=== PATIENT | male | born 1970 | race Caucasian/White ===

== ENCOUNTER 2025-01-05 08:50 | Outpatient (OUT) | payer OTHER, SELFPAY ==
--- NOTE | 2025-01-05 08:52 | ECG_ITS ---
[facility] Test Date: 2025-01-05 Pat Name: RAINA GALAN Department: Room: - Gender: Male Baller Tender: : 1970 Requested By: PREETHI MARIE Order Number: [id number] Reading MD: KLEVER ARCHER M.D. Measurements Intervals [place] Rate: 64 P: 28 WI: 172 QRS: -26 QRSD: 108 T: 158 QT: 403 QTc: 417 Interpretive Statements SINUS RHYTHM BORDERLINE LEFT AXIS DEVIATION [QRS AXIS < -20] POSSIBLE RIGHT VENTRICULAR CONDUCTION DELAY [RSR (QR) IN V1/V2] NONSPECIFIC T-WAVE ABNORMALITY Abnormal ECG Compared to ECG 07/20/2019 03:26:42 No significant changes Electronically Signed On 01-05-2025 21:04:00 EDT by KLEVER ARCHER M.D.
--- OUTSIDE RECORDS SUMMARY | 2025-01-05 08:56 | XMS_ITS | Clinical Summary ---
Author Organization [facility] Healthcare Address [address] [place] [address] Care Team Providers Care Land Economist Name Role Phone Unallocated, Noms Provider Primary Care Provi berny Allergies No known active allergies Medications carvedilol (Coreg) 12.5 MG tablet Take 12.5 mg by mouth in the morning and 12.5 mg before bedtime. 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 10 mL 1 Active Social History Tobacco Use Types Packs/Day Years Used Date Smoking Tobacco: Every Day Cigarettes Tobacco Cessation:Ready to Q uit: Not Asked; Counseling Given: Not Answered Sex and Gender Information Value Date Recorded Sex Assigned at Not on file Legal Sex Male 9:35 AM EDT Gender Identity Not on file Sexual Orientation Not on file Plan of Treatment Health Maintenance Due Date Last Done Comments CT Colonography 1969 Colonoscopy 1969 Colorectal Cancer Screening 1969 FIT-DNA 1969 FIT 1969 FOBT 1970 Sigmoidoscopy 1969 Influenza Vaccine (Season Ended) 2025 Insurance [employer] Care Teams Land Economist Relationship Specialty Start Date End Date Unallocated, Noms Anand, [address] [place] [address] PCP - General Family Medicine 02/19/24
--- OUTSIDE RECORDS SUMMARY | 2025-01-05 08:56 | XMS_ITS | Encounter Summary ---
Author Organization [facility] Address [address] [place] [address] Phone Care Team Providers Care Chief Communications Officer Name Role Phone Generic Provider, No Assigned Pcp MD Primary Car e Provider Unavailable Reason for Visit * Reason Onset Date Comments Cardiac Clearance 12/28/2024 Encounter Details Date Type Department Care Team (Late st Contact Info) Description 12/28/2024 Telephone [facility] [address] [address] Tasha Smith RN Cardiac Clearance Social History Tobacco Use Types Packs/Day Years Used Date Smoking Tobacco: Every Day Cigarettes Smokeless Tobacco: Never Alcohol Use Standard Drinks/Week Comments Not Currently 0 (1 standard drink = 0.6 oz pur e alcohol) Sex and Gender Information Value Date Recorded Sex Assigned at Not on file Legal Sex Male 2:33 PM EST Gender Identity Not on file Sexual Orientation Not on file documented as of this encounter Miscellaneous Notes * Telephone Encounter - Angelica Weinberg LPN - 12/29/2024 1:55 PM EDT Aspirin hold given by Dr. Nelson Casillas DO for 1 week and cardiac clearance for hydrocelectomy 01/20/2025. Faxed to Dr. Swan. * Telephone Encounter - Tasha Smith RN - 12/28/2024 9:[address] Swan office phones requesting cardiac clearance and permission to hold aspirin 1 week prior to[facility]celectomy at [facility] 01/20/25 under general anesthesia documented in this encounter Plan of Treatment Upcoming Encounters Date Type Department Care Team (Late st Contact Info) Description 10/06/2025 9:10 AM EDT Office Visit [facility] [address] [facility] [address] [place] [phone] Nelson Casillas, [address] [facility] [address] [place] [address] documented as of this encounter Visit Diagnoses Not on filedocumented in this encounter Care Teams Chief Communications Officer Relationship Specialty Start Date End Date Generic Provider, No Assigned Pcp, [place] [address] PCP - General Fish Warden 10/22/23 documented as of this encounter
--- OUTSIDE RECORDS SUMMARY | 2025-01-05 08:56 | XMS_ITS | Patient Health Record ---
Author Organization [facility] Address [address] [place] [address] Care Team Providers Care Car Filler Name Role Phone CollinsCara Primary Care Provider Reason For Referral No Information Medications Medication SIG (Take, Route, Frequency, Duration) Notes Start Date End Date Status Irbesartan 150 MG 1 tablet Orally Once a day Active Aspir-81 Active Carvedilol 6.25 MG 1 tablet Orally Twic e a day Active Furosemide 20 MG 1 tablet Orally Once a day Active Potassium Chloride ER 10 MEQ 1 tablet Orally once a day A ctive Social History Tobacco Use: Social History Observation Description Date Details (start date - stop date) Current Smoker NA - NA Tobacco Screen: Question Answer Notes Are you a: current smoker How often do you smoke cigarettes? every day How many cigarettes a day do you smoke? -20 Alcohol Screening: Question Answer Notes Did you have a drink containing alcohol in the p ast year? No Points 0 Interpretation Negative Problems Problem Type SNOMED Code ICD Code Onset Dates Problem Status W/U Status Risk Notes Problem [id number] Acute systolic congestive heart failure (I50.21) Active confirmed Problem [id number] Nonischemic cardiomyopathy (I42.8) 07/21/[address] Casillas Plan Of Treatment No Information Insurance Providers Payer Name Payer Address Payer Phone Subscriber Number Group Number Insured Name Patient Relationship to Insured Coverage Start Date Coverage End Date [employer] [address] [place] [address] [id number] RAINA GALAN Self - patient is the insured 0 Medical (General) History Medical History History ICD Code Heart Disease Hospitalization History Reason Date(Month/Year) SOB; Heart 07/2019
--- OUTSIDE RECORDS SUMMARY | 2025-01-05 08:56 | XMS_ITS | Clinical Summary ---
Author Organization [facility] Address [address] [place] [address] Phone Care Team Providers Care Auto Wrecker Name Role Phone Generic Provider, No Assigned Pcp MD Primary Car e Provider Unavailable Allergies No known active allergies Medications aspirin 81 mg EC tablet Take 1 tablet (81 mg) by mouth once daily. Active spironolactone (Aldactone) 25 mg tabletIndications:H ypertension, unspecified type Take 0.5 tablets (12.5 mg) by mouth once daily. 45 tablet 3 4 05/04/20 25 Active valsartan (Diovan) 40 mg tabletIndications:C HF (NYHA class II, ACC/AHA stage C) (Multi) Take 1 tablet (40 mg) by mouth 2 times a day. 180 tablet 3 5 07/27/19 26 Active carvedilol (Coreg) 12.5 mg tabletIndications:C HF (NYHA class II, ACC/AHA stage C) (Multi),Non-ischemi c cardiomyopathy (Multi),Hypertensio n, unspecified type Take 1 tablet (12.5 mg) by mouth 2 times a day. 180 tablet 3 5 10/01/19 26 Active empagliflozin (Jardiance) 10 mgIndications:CHF (NYHA class II, ACC/AHA stage C) (Multi),Non-ischemi c cardiomyopathy (Multi) Take 1 tablet (10 mg) by mouth once daily. 5 10/01/19 26 Active Active Problems Problem Noted Date Diagnosed Date Smoker 10/01/2023 BMI 29.0-29.9,adult 10/01/2023 Xanthelasma of eyelid, bilateral 10/01/2023 Chest pain with normal coronary angiography 07/21 CHF (NYHA class II, ACC/AHA stage C) (Multi) Hyperlipemia 08/08/2023 Hypertension 08/08/2023 Non-ischemic cardiomyopathy (Multi) 08/08/2023 Encounters Date Type Department Care Team Description 12/28/[address] [place] [phone] Tasha Smith RN Cardiac Clearance 10/15/[address] [place] [phone] Tasha Smith RN Results 10/12/2024 Orders Only [facility] [address] [place] [address] Rohan Martinez DO from Last 3 Months Immunizations Immunization Administration Dates Next Due Pfizer Purple Cap SARS-CoV-2 03/05/2021 Family History Medical History Relation Name Comments No Known Problems Father No Known Problems Mother Relation Name Status Comments Father Mother Social History Tobacco Use Types Packs/Day Years Used Date Smoking Tobacco: Every Day Cigarettes Smokeless Tobacco: Never Tobacco Cessation:Ready to Q uit: Not Asked; Counseling Given: Not Answered Alcohol Use Standard Drinks/Week Comments Not Currently 0 (1 standard drink = 0.6 oz pur e alcohol) Sex and Gender Information Value Date Recorded Sex Assigned at Not on file Legal Sex Male 2:33 PM EST Gender Identity Not on file Sexual Orientation Not on file Last Filed Vital Signs Vital Sign Reading Time Taken Comments Blood Pressure 128/90 09/30/2024 9:35 AM EDT Pulse 52 09/30/2024 9:35 AM EDT Temperature - - Respiratory Rate - - Oxygen Saturation - - Inhaled Oxygen Concentration - - Weight 101 kg (222 lb 6.4 oz) 09/30/2024 9:35 AM EDT Height 185.4 cm (6' 1 ) 09/30/2024 9:35 AM EDT Body Mass Index 29.34 09/30/2024 9:35 AM EDT Plan of Treatment Upcoming Encounters Date Type Department Care Team (Late st Contact Info) Description 10/06/2025 9:10 AM EDT Office Visit [facility] [address] [place] [address] Rohan Martinez DO [address] [place] [address] Health Maintenance Due Date Last Done Comments CT Colonography 1970 Colonoscopy 1969 Colorectal Cancer Screening 1969 FIT-DNA (Cologuard) 1969 FIT 1969 HIV Screening 1969 Sigmoidoscopy 1969 Yearly Adult Physical 1969 MMR Vaccines (1 of 1 - Standard series) 1970 Diabetes Screening 12/07/1987 Hepatitis C Screening 12/07/1987 Hepatitis B Vaccines (1 of 3 - 19+ 3-dose series) 1988 Pneumococcal Vaccine (1 of 2 - PCV) 1988 DTaP/Tdap/Td Vaccines (1 - Tdap) 12/07/1991 Zoster Vaccines (1 of 2) 12/07/2019 Creatinine Level 10/03/2021 10/03/2020, 12/2019, 12/27/2019, Additional history exists Potassium Level 10/03/2021 10/03/2020, 07/0 12/2019, 12/27/2019, Additional history exists COVID-19 Vaccine (2 - season) 2024 03/05/2021 Echocardiogram 11/03/2024 11/04/2023, 07/29/2022 Lipid Panel 01/23/2025 01/24/2020 Influenza Vaccine (Season Ended) 2025 HIB Vaccines Aged Out No longer eligi ble based on patient's age to complete this topic HPV Vaccines Aged Out No longer eligi ble based on patient's age to complete this topic Hepatitis A Vaccines Aged Out No long er eligible based on patient's age to complete this topic IPV Vaccines Aged Out No longer eligi ble based on patient's age to complete this topic Meningococcal Vaccine Aged Out No daryn rod eligible based on patient's age to complete this topic Rotavirus Vaccines Aged Out No longer eligible based on patient's age to complete this topic Procedures Procedure Name Priority Date/Time Associated Diagnosis Comments NON- HIE BASIC METABOLIC PANEL Routine 10/12/2024 8:43 AM EDT NON-UH HIE B-TYPE NATRIURETIC PEPTIDE Routine 10/12/2024 8:43 AM EDT TRANSTHORACIC ECHO (TTE) LIMITED Routine 11/04/2023 9:03 AM EDT CHF (NYHA class II, ACC/AHA stage C) (Multi) Non-ischemic cardiomyopathy (Multi) ELECTROLYTE PANEL Routine 10/03/2020 9: 50 AM EDT CREATININE Routine 10/03/2020 9:50 AM EDT LIPID PANEL Routine 01/24/2020 10:05 AM EDT from Last 3 Months or Most Recently Relevant to Health Maintenance Results * NON-[facility] HIE Basic Metabolic Panel (10/12/2024 8:43 AM EDT) NON-[facility] HIE Glucose 86 70 - 100 mg/dL [facility] Comment:Random Glucose Refer ence Range is dependent on time and content of last meal. Glucose of more than 200 mg/dL in a nonstressed, ambulatory subject supports the diagnosis of Diabetes Mellitus. ADA recommended reference range NON-[facility] HIE Blood Urea Nitrogen 19 7 - 25 mg/dL [facility] NON-UH HIE Creatinine 1.15 0.70 - 1.30 mg/dL [facility] NON-UH HIE ESTIMATED GFR >60.0 mL/Min [facility] NON-[facility] HIE Sodium 136 136 - 145 mmol/L [facility] NON-[facility] HIE Potassium 4.1 3.5 - 5.1 mmol/L [facility] NON-[facility] HIE Chloride 105 98 - 107 mmol/L [facility] NON-[facility] HIE Carbon Dioxide 25.4 21.0 - 31.0 mmol/L [facility] NON-[facility] HIE Anion Gap 9.7 6.0 - 15.0 meq/L [facility] NON-[facility] HIE Calcium 8.8 8.6 - 10.3 mg/dL [facility] Comment:PERFORMED BY:[facility] [place], [place] [id number] MEDICAL DIRECTORNIOCLASA MANUEL M.D. [facility] Plasma specimen or serum specimen or whole blood specimen 10/12/2024 8:43 AM EDT [facility] LAB BLOOD ORDERABLES Final Result Performing Organization Address [facility]/ZIP Co de Phone Number [facility] [address] [place] [address], [facility] [address] [place] [address] * (ABNORMAL) NON-UH HIE B-Type Natriuretic Peptide (10/12/2024 8:43 AM EDT) NON-UH HIE B-Type Natriuretic Peptide 138.0(H) 5 - 100 pg/mL [facility] Comment:PERFORMED BY:[facility] [place], [place] [id number] MEDICAL DIRECTORNICOLASA MANUEL M.D. [facility] Lab- Source, Unspecified 10/12/2024 8:43 AM EDT Rohan Martinez LAB BLOOD ORDERABLES Final Result Performing Organization Address [facility] Co de Phone Number [facility] [address] [facility] [place] [address], [facility] [address] [place] [address] * TRANSTHORACIC ECHO (TTE) LIMITED (11/04/2023 9:03 AM EDT) LVOT diam 2.60 cm [facility] LVIDd 5.94 cm SYNGO LV A4C EF 45.1 [facility] 11/04/2023 8:51 AM EDT Narrative [facility] - 11/06/2023 4:44 PM EDT [address], [address] [place] [address] TRANSTHORACIC ECHOCARDIOGRAM REPORT Patient Name: RAINA KNIGHT Reading Physician: [id number] Rohan Rader MD Study Date: 11/04/2023 Ordering Provider: [id number] ROHAN MARTINEZ MRN/PID: [id number] Fellow: Nurse: Date of /Age: 5 1970 / 52 years Men'S Golf Coach: Kristie Laws RDCS, RVT Gender: M Additional Staff: Height: 185.42 cm Admit Date: Weight: 100.70 kg Admission Status: BSA / BMI: 2.25 m2 / 29.29 kg/m2 Department Location: [facility] Blood Pressure: 124 /70 mmHg Study Type: TRANSTHORACIC ECHO (TTE) LIMITED Diagnosis/ICD: Heart failure, unspecified-I50.9; Other cardiomyopathies-I42.8 Indication: HTN, Hyperlipidemia, Tobacco Abuse, Shortness of Breath CPT Codes: Echo Limited-39839 Study Detail: The following Echo studies were performed: 2D and M-Mode. PHYSICIAN INTERPRETATION: Left Ventricle: Left ventricular systolic function is mildly decreased, with an estimated ejection fraction of 45%. There are multiple wall motion abnormalities. The left ventricular cavity size is mildly dilated. Left ventricular diastolic filling was not assessed. LV Wall Scoring: The basal inferolateral segment and basal inferior segment are hypokinetic. Left Atrium: The left atrium is normal in size. Right Ventricle: The right ventricle is slightly enlarged. There is normal right ventricular global systolic function. Right Atrium: The right atrium was not assessed. Aortic Valve: The aortic valve was not assessed. Aortic valve regurgitation was not assessed. Mitral Valve: The mitral valve was not assessed. Mitral valve regurgitation was not assessed. Tricuspid Valve: The tricuspid valve was not assessed. Tricuspid regurgitation was not assessed. Pulmonic Valve: The pulmonic valve was not assessed. The pulmonic valve regurgitation was not assessed. Pericardium: There is no pericardial effusion noted. Aorta: The aortic root is normal. CONCLUSIONS: 1. Left ventricular systolic function is mildly decreased with a 45% estimated ejection fraction. 2. Basal inferolateral segment and basal inferior segment are abnormal. 3. There are multiple wall motion abnormalities. QUANTITATIVE DATA SUMMARY: 2D MEASUREMENTS: Normal Ranges: Ao Root d: 3.70 cm (2.0-3.7cm) LAs: 3.70 cm (2.7-4.0cm) RVIDd: 3.25 cm (0.9-3.6cm) IVSd: 1.04 cm (0.6-1.1cm) LVPWd: 0.98 cm (0.6-1.1cm) LVIDd: 5.94 cm (3.9-5.9cm) LVIDs: 4.80 cm LV Mass Index: 109.4 g/m2 LV % FS 19.2 % LV SYSTOLIC FUNCTION BY 2D PLANIMETRY (MOD): Normal Ranges: EF-A4C View: 45.1 % (>=55%) AORTIC VALVE: Normal Ranges: LVOT Diameter: 2.60 cm (1.8-2.4cm) [id number] Rohan Rader MD Electronically signed on 11/06/2023 at 4:44:57 PM Wall Scoring Final Procedure Note Rohan Rader MD - 11/06/[address], [address] [place] [address] TRANSTHORACIC ECHOCARDIOGRAM REPORT Patient Name: RAINA Alfredo Physician: [id number] CmnMD Study Date: 11/04/2023 Ordering Provider: [id number] MARTINEZ MRN/PID: [id number] Fellow: Nurse: Date of /Age: 5 1970 / 52 years Men'S Golf Coach: Viry SIMON RVT Gender: M Additional Staff: Height: 185.42 cm Admit Date: Weight: 100.70 kg Admission Status: BSA / BMI: 2.25 m2 / 29.29 kg/m2 Department Location: [facility] Blood Pressure: 124 /70 mmHg Study Type: TRANSTHORACIC ECHO (TTE) LIMITED Diagnosis/ICD: Heart failure, unspecified-I50.9; Othercardiomyopathies-I42.8 Indication: HTN, Hyperlipidemia, Tobacco Abuse, Shortness of Breath CPT Codes: Echo Limited-40802 Study Detail: The following Echo studies were performed: 2D and M-Mode. PHYSICIAN INTERPRETATION: Left Ventricle: Left ventricular systolic function is mildly decreased,with an estimated ejection fraction of 45%. There are multiple wall motionabnormalities. The left ventricular cavity size is mildly dilated. Leftventricular diastolic filling was not assessed. LV Wall Scoring: The basal inferolateral segment and basal inferior segment arehypokinetic. Left Atrium: The left atrium is normal in size. Right Ventricle: The right ventricle is slightly enlarged. There is normalright ventricular global systolic function. Right Atrium: The right atrium was not assessed. Aortic Valve: The aortic valve was not assessed. Aortic valveregurgitation was not assessed. Mitral Valve: The mitral valve was not assessed. Mitral valveregurgitation was not assessed. Tricuspid Valve: The tricuspid valve was not assessed. Tricuspidregurgitation was not assessed. Pulmonic Valve: The pulmonic valve was not assessed. The pulmonic valveregurgitation was not assessed. Pericardium: There is no pericardial effusion noted. Aorta: The aortic root is normal. CONCLUSIONS: 1. Left ventricular systolic function is mildly decreased with a 45%estimated ejection fraction. 2. Basal inferolateral segment and basal inferior segment are abnormal. 3. There are multiple wall motion abnormalities. QUANTITATIVE DATA SUMMARY: 2D MEASUREMENTS: Normal Ranges: Ao Root d: 3.70 cm (2.0-3.7cm) LAs: 3.70 cm (2.7-4.0cm) RVIDd: 3.25 cm (0.9-3.6cm) IVSd: 1.04 cm (0.6-1.1cm) LVPWd: 0.98 cm (0.6-1.1cm) LVIDd: 5.94 cm (3.9-5.9cm) LVIDs: 4.80 cm LV Mass Index: 109.4 g/m2 LV % FS 19.2 % LV SYSTOLIC FUNCTION BY 2D PLANIMETRY (MOD): Normal Ranges: EF-A4C View: 45.1 % (>=55%) AORTIC VALVE: Normal Ranges: LVOT Diameter: 2.60 cm (1.8-2.4cm) [id number] Rohan Rader MD Electronically signed on 11/06/2023 at 4:44:57 PM Wall Scoring Final us Rohan Martinez DO CV ECHO PROCEDURES Final Re sult [facility] Organization Address City/State/ZIP Co de Phone Number [facility] * Creatinine (10/03/2020 9:50 AM EDT) Creatinine 1.19 0.50 - 1.30 mg/dL [facility] GLOMERULAR FILTRATION RATE-NON >60 >60 mL/min/1.[address] [facility] GLOMERULAR FILTRATION RATE- >60 >60 mL/min/1.[address] [facility] Comment: CALCULATIONS OF ESTIMATED GFR ARE PERFORMED USING THE MDRD STUDY EQUATION FOR THE IDMS-TRACEABLE CREATININE METHODS. CLIN CHEM 2007;53:766-72 10/03/2020 9:50 AM EDT 10/03/2020 6:45 PM EDT Rohan Rae Vinny DO LAB BLOOD ORDERABLES Final Result Performing Organization Address City/[facility]/ZIP Co de Phone Number [facility] * (ABNORMAL) Electrolyte Panel (10/03/2020 9:50 AM EDT) Sodium 143 136 - 145 mmol/L [facility] Potassium 4.3 3.5 - 5.3 mmol/L [facility] Chloride 108(H) 98 - 107 mmol/L [facility] Bicarbonate 28 21 - 32 mmol/L [facility] Anion Gap 11 10 - 20 mmol/L [facility] 10/03/2020 9:50 AM EDT 10/03/2020 6:45 PM EDT Rohan Rae Vinny DO LAB BLOOD ORDERABLES Final Result [facility] * (ABNORMAL) Lipid Panel (01/24/2020 10:05 AM EDT) Cholesterol 122 0 - 199 mg/dL [facility] Comment: . AGE DESIRABLE BORDERLINE HIGH HIGH 0-19 Y 0 - 169 170 - 199 >/= 200 20-24 Y 0 - 189 190 - 224 >/= 225 >24 Y 0 - 199 200 - 239 >/= 240 All ranges are based on fasting samples. Specific therapeutic targets will vary based on patient-specific cardiac risk. . Pediatric guidelines reference:Pediatrics 2011, 128(S5). Adult guidelines reference: NCEP ATPIII Guidelines, NATALIIA 2001, 258:2486-97 . Venipuncture immediately after or during the administration of Metamizole may lead to falsely low results. Testing should be performed immediately prior to Metamizole dosing. HDL 31.0(A) mg/dL [facility] Comment: . AGE VERY LOW LOW NORMAL HIGH 0-19 Y < 35 < 40 40-45 ---- 20-24 Y ---- < 40 >45 ---- >24 Y ---- < 40 40-60 >60 . Cholesterol/HDL Ratio 3.9 [facility] Comment: REF VALUES DESIRABLE < 3.4 HIGH RISK > 5.0 LDL 75 0 - 99 mg/dL [facility] Comment: . NEAR BORD AGE DESIRABLE OPTIMAL HIGH HIGH VERY HIGH 0-19 Y 0 - 109 --- 110-129 >/= 130 ---- 20-24 Y 0 - 119 --- 120-159 >/= 160 ---- >24 Y 0 - 99 100-129 130-159 160-189 >/=190 . VLDL 16 0 - 40 mg/dL [facility] Triglycerides 79 0 - 149 mg/dL [facility] Comment: . AGE DESIRABLE BORDERLINE HIGH HIGH VERY HIGH 0 D-90 D 19 - 174 ---- ---- ---- 91 D- 9 Y 0 - 74 75 - 99 >/= 100 ---- 10-19 Y 0 - 89 90 - 129 >/= 130 ---- 20-24 Y 0 - 114 115 - 149 >/= 150 ---- >24 Y 0 - 149 150 - 199 200- 499 >/= 500 . Venipuncture immediately after or during the administration of Metamizole may lead to falsely low results. Testing should be performed immediately prior to Metamizole dosing. 01/24/2020 10:0 5 AM EDT 01/24/2020 5:24 PM EDT us Lillian Silva CAREER DEVELOPMENT ENGINEER-MECHANICAL DESIGN ENGINEER FACILITIES LAB BLOOD ORDERABLES Tanvi l Result [facility] from Last 3 Months or Most Recently Relevant to Health Maintenance Insurance [facility] Care Teams Auto Wrecker Relationship Specialty Start Date End Date Generic Provider, No Assigned [place], [place] [address] PCP - General Pyridine Recovery Operator 10/22/23
--- NOTE | 2025-01-05 09:52 | XR_ITS ---
The [address] [address] Patient Name: RAINA GALAN MRN: [id number] date: 1970 Sex: M Assigned Patient Location: [facility] Current Patient Location: [facility] Accession/Order Number: [id number] Exam Date: 01/05/2025 09:55 Report Date: 01/05/2025 09:58 At the request of: PREETHI MARIE MD Procedure: XR chest 2V PA AND LATERAL CHEST: CLINICAL HISTORY: Preoperative clearance. Tobacco use. COMPARISON: 07/20/2019 There is slight hyperinflation and chronic coarsening of interstitial markings. There is no developing consolidation, effusion or pneumothorax. The cardiac, hilar and mediastinal silhouettes are within normal limits. There is no suspected vascular congestion. The visualized bony thorax is intact. Endplate spurring is present at the spine. XR/XR chest 2V IMPRESSION: MINOR CHRONIC CHANGES. NO ACUTE CARDIOPULMONARY ABNORMALITY. Impression dictated by: Purnima Feliz M.D. 01/05/2025 9:58 AM Dictation Location: [place] [address] Electronically authenticated by: [id number] Y Date: 01/05/2025 09:58
[2025-01-05 09:58] LABS: Basophils Absolute Auto 0.1 10^3/uL (0.0-0.1); Basophils Percent Auto 0.9 % (0.2-2.0); Eosinophils Absolute Auto 0.3 10^3/uL (0.0-0.7); Eosinophils Percent Auto 2.7 % (0.9-7.0); Hematocrit 43.2 % (42.0-54.0); Hemoglobin 14.9 g/dL (14.0-18.0); Immature Granulocytes Abs Auto 0.03 10^3/uL (0.00-0.03); Immature Granulocytes Pct Auto 0.3 % (0.0-0.5); Lymphocytes Absolute Auto 2.9 10^3/uL (1.2-3.8); Lymphocytes Percent Auto 30.1 % (20.5-60.0); Mean Corpuscular HGB Conc 34.5 g/dL (29.9-35.2); Mean Corpuscular Hemoglobin 30.1 pg (25.9-34.0); Mean Corpuscular Volume 87.3 fL (80.0-94.0); Mean Platelet Volume 10.8 fL (9.5-13.5); Monocytes Absolute Auto 0.9 10^3/uL (0.3-0.8); Monocytes Percent Auto 9.5 % (1.7-12.0); Neutrophils Absolute Auto 5.4 10^3/uL (1.4-6.5); Neutrophils Percent Auto 56.5 % (43.0-75.0); Platelet Count 238 10^3/uL (150-450); Red Blood Count 4.95 10^6/uL (4.70-6.10); Red Cell Distribution Width 12.9 % (11.0-15.0); White Blood Count 9.5 10^3/uL (4.0-11.0)
--- NOTE | 2025-01-05 10:00 | PM.PRESUREVA ---
History of Present Illness History of Present Illness Chief complaint: Left Hydrocele Narrative: Presents for presurgical testing. Please see HPI from Dr. Swan dated December 27, 2024. Review of Systems ROS Narrative Please see ROS from Dr. Swan dated December 27, 2024. [facility] Medical History (Updated 01/05/25 @ 10:04 by Violette Martinez NP) Left hydrocele ?N43.3 - Hydrocele, unspecified (ICD-10) Hyperlipidemia ?E78.5 - Hyperlipidemia, unspecified (ICD-10) Non-ST elevation OR (NSTEMI) ?I21.4 - Non-ST elevation (NSTEMI) myocardial infarction (ICD-10) Dyspnea on exertion ?R06.09 - Other forms of dyspnea (ICD-10) Hypertension ?I10 - Essential (primary) hypertension (ICD-10) Extremity edema ?R60.0 - Localized edema (ICD-10) Non-ischemic cardiomyopathy ?I42.8 - Other cardiomyopathies (ICD-10) Congestive heart failure ?I50.9 - Heart failure, unspecified (ICD-10) Surgical History (Updated 01/05/25 @ 09:59 by Violette Martinez NP) H/O hand surgery ?Z98.890 - Other specified postprocedural states (ICD-10) History of cardiac catheterization ?Z98.890 - Other specified postprocedural states (ICD-10) History of tonsillectomy ?Z90.89 - Acquired absence of other organs (ICD-10) Family History (Updated 01/05/25 @ 09:30 by Violette Martinez NP) Other Family history of cancer Family history of hypertension Social History (Updated 01/05/25 @ 09:22 by Violette Martinez NP) Within the past year, how often did you have a drink containing alcohol: never Score interpretation: A score less than 4 is consistent with normal alcohol consumption. 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 Highest level of school completed/degree received: high school graduate Meds Home Medications and Allergies Home Medications ?Medication ?Instructions ?Recorded ?Confirmed ?Type aspirin 81 mg tablet,delayed 81 mg PO DAILY 01/05/25 01/05/25 History release (Adult Aspirin Regimen) carvedilol 12.5 mg tablet 12.5 mg PO Q12H 01/05/25 01/05/25 History spironolactone 25 mg tablet 12.5 mg PO DAILY 01/05/25 01/05/25 History valsartan 40 mg tablet 40 mg PO DAILY 01/05/25 01/05/25 History Allergies Allergy/AdvReac Type Severity Reaction Status Date / Time No Known Drug Allergies Allergy Verified 01/05/25 09:19 Exam Narrative Exam Narrative: Constitutional: Awake, alert, comfortable, well-appearing, nontoxic, interactive, vital signs as charted Head: Normocephalic, atraumatic Neck: Supple, normal appearance, normal range of motion, no meningeal signs, no lymphadenopathy Respiratory: No respiratory distress, breath sounds clear Cardiovascular: Regular rate, irregular rhythm, strong heart tones Abdomen: Nontender, normal bowel sounds, soft, no CVA tenderness Musculoskeletal: Normal gait, no swelling or edema Skin: No rashes or induration, no lesions, only visible skin inspected Neuro: No neurological deficits, normal sensation Psychiatric: Oriented ?3, normal affect Assessment and Plan Assessment and Plan (1) Left hydrocele: Plan Left hydrocelectomy scheduled with Dr. Swan January 20, 2025.
[2025-01-05 10:16] LABS: Partial Thromboplastin Time 27.2 sec (22.3-36.2); Prothrombin Time 10.6 sec (9.0-11.6)
[2025-01-05 10:23] LABS: BUN Creatinine Ratio 15.2; Calcium 8.8 mg/dL (8.5-10.1); Chloride 106 mmol/L (98-107); Estimated GFR (African America >60 (>=60 mL/min/1.73m^2); Estimated GFR (Non-African Ame 60 (>=60 mL/min/1.73m^2); Glucose 91 mg/dL (74-106); Sodium 140 mmol/L (136-145)
== END 2025-01-05 08:51 | disposition home or self-care (01) ==
PROVIDERS: Visit Provider Urology
DX: Z01.810 Encounter for preprocedural cardiovascular examination (principal); Z01.812 Encounter for preprocedural laboratory examination; Z01.818 Encounter for other preprocedural examination; N43.3 Hydrocele, unspecified; E78.5 Hyperlipidemia, unspecified
CPT/HCPCS: 36415; 71046; 80048; 85025; 85610; 85730; 93005; G0463

== ENCOUNTER 2025-01-20 11:00 | Day surgery (SDC) | payer OTHER, SELFPAY ==
[2025-01-05 09:54] VITALS: BP 141/79; PULSE 72; TEMP 36.4; O2SAT 94; BMI 29.8
[2025-01-20] VITALS (8 sets, daily range): BP systolic 142–156; BP diastolic 83–104; PULSE 68–76; TEMP 36.1–36.2; O2SAT 92–95; BMI 28.9
--- OUTSIDE RECORDS SUMMARY | 2025-01-20 11:03 | XMS_ITS | Clinical Summary ---
Author Organization [facility] Healthcare Address [address] [place] [address] Care Team Providers Care Import And Export Clerk Name Role Phone Unallocated, Noms Provider Primary [...] 1970 FOBT 1970 Sigmoidoscopy 1970 Influenza Vaccine (#1) 2025 Insurance [employer] Care Teams Import And Export Clerk Relationship Specialty Start Date End Date Unallocated, Noms Anand, [address] [place] [address] PCP - General Family Medicine 02/19/24
--- OUTSIDE RECORDS SUMMARY | 2025-01-20 11:04 | XMS_ITS | Clinical Summary ---
Author Organization [facility] Address [address] [place] [address] Phone Care Team Providers Care Pit Operator Name Role Phone Generic Provider, No Assigned [...] Type Department Care Team Description 12/28/2024 Telephone [facility] [address] [facility] [facility] [facility] [address] [place] [address] Tasha Smith RN Cardiac Clearance from Last 3 Months Immunizations Immunization Administration [...] Care Team (Late st Contact Info) Description 10/04/2025 9:50 AM EDT Office Visit [facility] [address] [facility] [address] [place] [address] Nelson Martinez DO [address] [facility] [address] [place] [address] Health Maintenance Due Date Last [...] 07/29/2022 Lipid Panel 01/23/2025 01/24/2020 Influenza Vaccine (#1) 2025 HIB Vaccines Aged Out No longer eligi ble based on patient's age to complete this topic HPV Vaccines (No Doses Required) Completed Hepatitis A Vaccines Aged Out No long [...] Procedure Name Priority Date/Time Associated Diagnosis Comments TRANSTHORACIC ECHO (TTE) LIMITED Routine 11/04/2023 9:03 AM EDT CHF (NYHA class II, ACC/AHA stage C) (Multi) Non-ischemic cardiomyopathy (Multi) ELECTROLYTE PANEL Routine 10/03/2020 9:5 0 AM EDT CREATININE Routine 10/03/2020 9:50 AM EDT LIPID PANEL Routine 01/24/2020 10:05 AM EDT from Last 3 Months or Most Recently Relevant to Health Maintenance Results * TRANSTHORACIC ECHO (TTE) LIMITED (11/04/2023 9:03 AM EDT) LVOT diam 2.60 cm SYNGO LVIDd 5.94 cm SYNGO LV A4C EF 45.1 SYNGO 11/04/2023 8:51 AM EDT Narrative SYNGO - 11/06/2023 4:44 PM EDT [address], [address] [address] TRANSTHORACIC ECHOCARDIOGRAM REPORT Patient Name: KRIS KNIGHT Reading Physician: [id number] Nelson Rader MD Study Date: 11/04/2023 Ordering Provider: [id number] NELSON MARTINEZ MRN/PID: [id number] Fellow: Nurse: Date of /Age: 5 1970 / 52 years X Ray Developing Machine Operator: Krisite Laws RDCS, RVT Gender: M Additional Staff: Height: 185.42 cm Admit Date: Weight: 100.70 kg Admission Status: BSA / BMI: 2.25 m2 / 29.29 kg/m2 Department Location: [facility] Blood Pressure: 124 /70 mmHg Study Type: TRANSTHORACIC ECHO (TTE) LIMITED Diagnosis/ICD: Heart failure, unspecified-I50.9; Other cardiomyopathies-I42.8 Indication: HTN, Hyperlipidemia, Tobacco Abuse, Shortness of Breath CPT Codes: Echo Limited-12256 Study Detail: The following Echo studies were [...] Normal Ranges: LVOT Diameter: 2.60 cm (1.8-2.4cm) [id number] Nelson Rader MD Electronically signed on 11/06/2023 at 4:44:57 PM Wall Scoring Final Procedure Note Nelson Rader MD - 11/06/[address], Suite Formerly named [facility], [place] [address] TRANSTHORACIC ECHOCARDIOGRAM REPORT Patient Name: KRIS KNIGHT Sayda Physician: [id number] CmnMD Study Date: 11/04/2023 Ordering Provider: [id number] MARTINEZ MRN/PID: [id number] Fellow: Nurse: Date of /Age: 5 1970 / 52 years X Ray Developing Machine Operator: Viry SIMON RVT Gender: M Additional Staff: Height: 185.42 cm Admit Date: Weight: 100.70 kg Admission Status: BSA / BMI: 2.25 m2 / 29.29 kg/m2 Department Location: [facility] Blood Pressure: 124 /70 mmHg Study Type: TRANSTHORACIC ECHO (TTE) LIMITED Diagnosis/ICD: Heart failure, unspecified-I50.9; Othercardiomyopathies-I42.8 Indication: HTN, Hyperlipidemia, Tobacco Abuse, Shortness of Breath CPT Codes: Echo Limited-96521 Study Detail: The following Echo studies were [...] Normal Ranges: LVOT Diameter: 2.60 cm (1.8-2.4cm) [id number] Nelson Rader MD Electronically signed on 11/06/2023 at 4:44:57 PM Wall Scoring Final Nelson Martinez DO CV ECHO PROCEDURES Final Re sult Performing Organization Address [facility] Co de Phone Number SYNGO * Creatinine (10/03/2020 9:50 AM EDT) Creatinine 1.19 0.50 - 1.30 mg/dL [facility] GLOMERULAR FILTRATION RATE-NON >60 >60 mL/min/1.7 3m2 [facility] GLOMERULAR FILTRATION RATE- >60 >60 mL/min/1.[address] [place] [address] LAB Comment: CALCULATIONS OF ESTIMATED GFR ARE PERFORMED USING THE MDRD STUDY EQUATION FOR THE IDMS-TRACEABLE CREATININE METHODS. CLIN CHEM 2007;53:766-72 10/03/2020 9:50 AM EDT 10/03/2020 6:45 PM EDT Nelson Martinez DO LAB BLOOD ORDERABLES Final Result Performing Organization Address [facility]/ZIP Co de Phone Number [facility] * (ABNORMAL) Electrolyte Panel (10/03/2020 9:50 AM EDT) Sodium 143 136 - 145 mmol/L [facility] Potassium 4.3 3.5 - 5.3 mmol/L [facility] Chloride 108(H) 98 - 107 mmol/L [facility] Bicarbonate 28 21 - 32 mmol/L [facility] Anion Gap 11 10 - 20 mmol/L [facility] 10/03/2020 9:50 AM EDT 10/03/2020 6:45 PM EDT Nelson Martinez DO LAB BLOOD ORDERABLES Final Result [facility] * (ABNORMAL) Lipid Panel (01/24/2020 10:05 AM EDT) Cholesterol 122 0 - 199 mg/dL [facility] Comment: . AGE DESIRABLE BORDERLINE [...] prior to Metamizole dosing. HDL 31.0(A) mg/dL [facility] Comment: . AGE VERY LOW LOW NORMAL HIGH 0-19 Y < 35 < 40 40-45 ---- 20-24 Y ---- < 40 >45 ---- >24 Y ---- < 40 40-60 >60 . Cholesterol/HDL Ratio 3.9 [facility] Comment: REF VALUES DESIRABLE < 3.4 HIGH RISK > 5.0 LDL 75 0 - 99 mg/dL [facility] Comment: . NEAR BORD AGE DESIRABLE OPTIMAL HIGH HIGH VERY HIGH 0-19 Y 0 - 109 --- 110-129 >/= 130 ---- 20-24 Y 0 - 119 --- 120-159 >/= 160 ---- >24 Y 0 - 99 100-129 130-159 160-189 >/=190 . VLDL 16 0 - 40 mg/dL [facility] Triglycerides 79 0 - 149 mg/dL [facility] Comment: . AGE DESIRABLE BORDERLINE [...] 01/24/2020 5:24 PM EDT us Lillian Silva FISHING WORKER-POLL CLERK LAB BLOOD ORDERABLES Tanvi bucio Result [facility] from Last 3 Months or Most Recently Relevant to Health Maintenance Insurance Member Subscriber Plan / Payer (Ef fective 2023-Present) Name:Kris Knight Relation to Subscriber:Self Name:Kirs Knight Payer ID:Not on file Type:Not on file Address: [facility] [id number] [address] Member Subscriber Plan / Payer (Ef fective 2023-Present) Name:Kris Knight Relation to Subscriber:Self Name:Kris Knight Payer ID:Not on file Type:Not on file Address: [address] [id number] [address] Care Teams Pit Operator Relationship Specialty Start Date End Date Generic Provider, No Assigned Pcp, [place] [address] PCP - General District Customs Director 10/22/23
[2025-01-20] MEDS: CEFAZOLIN SODIUM 2 GM/50 ML D5W PREMIX IV (12:21)
[2025-01-20] MEDS: MINERAL OIL LIGHT STERILE 10 ML VIAL TOPICAL (13:11)
[2025-01-20] MEDS: BACITRACIN OINTMENT 28.4 GM TUBE 1 APPLIC TOPICAL (14:04)
--- NOTE | 2025-01-20 14:09 | P.URON_ITS ---
Urology Surgery Operative Note Operative Note Procedure Date: 01/20/25 Time Out Performed: yes Pre-op Diagnosis: Large left hydrocele Post-op Diagnosis: same as pre-op Procedures performed: 1. Left hydrocelectomy Anesthesia: General-LMA Primary Surgeon: Rory Swan Complications: None Estimated blood loss (mL): 20 Findings: Very large and tense left hydrocele extending up to his external inguinal ring Specimens: Left hydrocele sac Drains: None Indications for Procedures: This gentleman has a very large left hydrocele which is causing daily bother. He is desirous for hydrocelectomy. He has signed an informed consent after risks were explained. Some of these risks include bleeding, infection, anesthesia, and recurrence of his hydrocele to name a few. Detailed description of Procedure: The patient was brought to the operating room and placed on the operating room table in the supine position. SCDs were placed on his lower extremities and turned on and functioning during the entire case. Timeout was done by all parties in the room. We all agreed upon the patient's identification and the planned procedures for this patient. General anesthesia was then administered via LMA. The genitalia were sterilely prepped and draped in the usual fashion. I started by making a transverse left hemiscrotal incision with a 15 blade scalpel. The Bovie cautery was used to dissect through the scrotal layers and to arrive at a very large tense fluid-filled hydrocele. I then sharply and b luntly freed the hemiscrotal contents from the scrotal attachments circumferentially. They were then delivered out the incision. I bluntly dissected all of the left hemiscrotal contents free and the distal spermatic cord. I then sharply cut into the sac and aspirated over 1 L of straw-colored fluid. The sac was opened up with a scissors in the cephalad and caudad directions. We then tagged the corners of the sac with hemostats. I then circumferentially excised the large redundant sac. This was sent for permanent sections. I then coagulated the remaining edges of the hydrocele sac with the Bovie cautery to get and maintain hemostasis. Any other small bleeders within the dartos layer were then coagulated similarly. We irrigated the testicle epididymis and spermatic cord and the left hemiscrotum. The testicle and epididymis were very viable. Once we verified that we had perfect hemostasis, we then placed the left hemiscrotal contents back into the left hemiscrotum in the proper anatomic orientation. I then closed the dartos layer with 3-0 Vicryl in a running fashion. The scrotal skin was closed with 4-0 Vicryl in a running fashion. Bacitracin was applied to the incision and sterile fluffs and a scrotal support were then applied. He was then transferred to a [facility] bed and wheeled to PACU in stable condition.
--- NOTE | 2025-01-20 15:23 | PC.NURSE ---
Up to bathroom and voids clear yellow without difficulty
== END 2025-01-20 15:33 | disposition home or self-care (01) ==
LOC: SURGOUT 11:01
PROVIDERS: Visit Provider Urology
PROC: (CPT 00920; principal; 2025-01-20 12:00)
DX: N43.3 Hydrocele, unspecified (principal); E78.5 Hyperlipidemia, unspecified; Z79.01 Long term (current) use of anticoagulants; J44.9 Chronic obstructive pulmonary disease, unspecified; I50.9 Heart failure, unspecified; I25.10 Atherosclerotic heart disease of native coronary artery without angina pectoris; I25.2 Old myocardial infarction; I11.0 Hypertensive heart disease with heart failure; F17.210 Nicotine dependence, cigarettes, uncomplicated
CPT/HCPCS: 00920; 55040; 36415; 88304; J0131; J0690; J1100; J1171; J1885; J2250; J2371; J2405; J2704; J3010

== ENCOUNTER 2025-05-03 10:29 | Observation (INO) | payer OTHER, SELFPAY ==
[2025-05-03] VITALS (21 sets, daily range): BP systolic 119–186; BP diastolic 76–117; PULSE 65–78; TEMP 36.4–36.6; O2SAT 93–99; BMI 31.1; BMI 30.6
--- NOTE | 2025-05-03 | XR_ITS ---
[address] [address] Patient Name: RAINA GALAN MRN: [id number] date: 1970 Sex: M Assigned Patient Location: ER Current Patient Location: ER Accession/Order Number: [id number] Exam Date: 05/03/2025 14:05 Report Date: 05/03/2025 14:16 At the request of: JESUS GRIFFIN MD Procedure: XR foreign body eye SHRA Orbits 2 views. Reason for exam: Pre-MRI. FINDINGS: No radiopaque foreign body. No bony destruction. XR/XR foreign body eye SHAR IMPRESSION: No radiopaque foreign body. Impression dictated by: Ivan Chong Jr., D.OMraco 05/03/2025 2:16 PM Dictation Location: [place] [address] Electronically authenticated by: [id number] Y Date: 05/03/2025 14:16
--- NOTE | 2025-05-03 10:46 | CT_ITS ---
The [address] [address] Patient Name: RAINA GALAN MRN: [id number] date: 1970 Sex: M Assigned Patient Location: ER Current Patient Location: ER Accession/Order Number: [id number] Exam Date: 05/03/2025 10:54 Report Date: 05/03/2025 11:33 At the request of: PANCHO BUSTOS MD Procedure: CT stroke head/brain wo con CT BRAIN WITHOUT CONTRAST - stroke alert: CLINICAL HISTORY: right leg weak and numb COMPARISON: None TECHNIQUE: Contiguous axial unenhanced images were obtained through the brain. This CT exam was performed using one or more following dose reduction techniques: Automated exposure control, adjustment of the mA and/or kV according to patient size, or use of iterative reconstruction technique. FINDINGS: There is mild cortical atrophy. The ventricles are normal in size and position. Mild hypodensity is seen within the periventricular white matter which may be microvascular disease. Focal hypodensities are present in the basal ganglia region on the right which could be prominent perivascular spaces and/or old lacunar infarcts. No obvious acute cortical infarct is seen. There is no hemorrhage, mass effect or extra-axial collections. There is minor ethmoid mucosal thickening. The remaining imaged paranasal sinuses and mastoid air cells are clear. There is minor vertebral basilar plaque. The vessel also appears slightly hyperdense in this area (axial image 8) however the remaining vessels of the [place] also slightly hyperdense. Patient is scheduled for CTA. CT/CT stroke head/brain wo con IMPRESSION: ATROPHY AND WHITE MATTER CHANGES WHICH MAY BE MICROVASCULAR DISEASE. RIGHT BASAL GANGLIA OLD LACUNAR INFARCTS AND/OR PROMINENT PERIVASCULAR SPACES. NO DEFINITE ACUTE INTRACRANIAL ABNORMALITY. FOLLOW-UP IS RECOMMENDED, SYMPTOMS WARRANT. Comment: Findings were discussed with Dr. Bustos at 1130 hours Impression dictated by: Purnima Feliz M.D. 05/03/2025 11:33 AM Dictation Location: [place] [address] Electronically authenticated by: [id number] Y Date: 05/03/2025 11:33
--- NOTE | 2025-05-03 10:47 | ECG_ITS ---
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 Measurements Intervals [place] Rate: 71 P: 22 MS: 170 QRS: -21 QRSD: 102 T: 150 QT: 372 QTc: 395 Interpretive Statements 1100 Sinus rhythm 4068 Nonspecific Tw[place] abnormality 7202 Moderate left axis deviation 9130 borderline ECG Compared to ECG 01/05/2025 09:38:29 T-wave abnormality no longer present Electronically Signed On 05-03-2025 19:08:23 EDT by KLEVER ARCHER M.D.
--- NOTE | 2025-05-03 10:47 | XR_ITS ---
The [address] [address] Patient Name: RAINA GALAN MRN: [id number] date: 1970 Sex: M Assigned Patient Location: ER Current Patient Location: ER Accession/Order Number: [id number] Exam Date: 05/03/2025 10:54 Report Date: 05/03/2025 11:38 At the request of: PANCHO BUSTOS MD Procedure: XR chest 1V PORTABLE ERECT CHEST 1037 hours CLINICAL HISTORY: Stroke symptoms. Dizziness and right leg numbness COMPARISON: 01/05/2025 The heart is top normal in size. Hilar and mediastinal contours are similar. There is continued coarsening of interstitial markings. No developing consolidation is seen There is no sizable effusion or pneumothorax. The osseous structures are intact. There is mild endplate spurring. XR/XR chest 1V IMPRESSION: NO ACUTE FINDINGS Impression dictated by: Purnima Feliz M.D. 05/03/2025 11:38 AM Dictation Location: [place] [address] Electronically authenticated by: [id number] Y Date: 05/03/2025 11:38
--- NOTE | 2025-05-03 10:54 | PC.NURSE ---
pt to imaging via whelchair at this time.
[2025-05-03 11:07] LABS: Hematocrit 42.7 % (42.0-54.0); Hemoglobin 14.7 g/dL (14.0-18.0); Immature Granulocytes Abs Auto 0.05 10^3/uL (0.00-0.03); Immature Granulocytes Pct Auto 0.5 % (0.0-0.5); Lymphocytes Absolute Auto 3.1 10^3/uL (1.2-3.8); Mean Corpuscular HGB Conc 34.4 g/dL (29.9-35.2); Mean Corpuscular Hemoglobin 29.6 pg (25.9-34.0); Mean Corpuscular Volume 86.1 fL (80.0-94.0); Platelet Count 268 10^3/uL (150-450); Red Blood Count 4.96 10^6/uL (4.70-6.10); White Blood Count 10.5 10^3/uL (4.0-11.0)
--- NOTE | 2025-05-03 11:14 | ED.GENADUL1 ---
HPI HPI - General Adult General Chief complaint: Extremity Problem, Nontraumatic Stated complaint: DIZZINESS R LEG NUMBNESS Time Seen by Provider: 05/03/25 10:40 Source: patient Mode of arrival: walk-in Limitations: no limitations History of Present Illness HPI narrative: 54-year-old male presented to the emergency department for a chief complaint of dizziness which has resolved and right leg weakness. This started about 3 hours ago when he was in his kitchen. He felt dizzy but the dizziness has resolved completely. At the same time he developed some weakness in his right leg and what he describes as numbness. It starts from just below the groin and goes down to his foot all the way around his leg circumferentially. Related Data Home Medications ?Medication ?Instructions ?Recorded ?Confirmed aspirin 81 mg tablet,delayed 81 mg PO DAILY 01/05/25 05/03/25 release (Adult Aspirin Regimen) carvedilol 12.5 mg tablet 12.5 mg PO Q12H 01/05/25 05/03/25 spironolactone 25 mg tablet 12.5 mg PO DAILY 01/05/25 05/03/25 valsartan 40 mg tablet 40 mg PO DAILY 01/05/25 05/03/25 Previous Rx's ?Medication ?Instructions ?Recorded ketorolac 10 mg tablet 10 mg PO Q8H PRN pain 2 days #5 01/20/25 tabs Allergies Allergy/AdvReac Type Severity Reaction Status Date / Time No Known Drug Allergies Allergy Verified 05/03/25 10:40 Review of Systems ROS Narrative A ten point review of systems is negative except as noted above. PFSH [facility] Medical History (Updated 05/03/25 @ 12:57 by Robert Quinones MD) Left hydrocele ?N43.3 - Hydrocele, unspecified (ICD-10) Hyperlipidemia ?E78.5 - Hyperlipidemia, unspecified (ICD-10) Non-ST elevation HI (NSTEMI) ?I21.4 - Non-ST elevation (NSTEMI) myocardial infarction (ICD-10) Dyspnea on exertion ?R06.09 - Other forms of dyspnea (ICD-10) Hypertension ?I10 - Essential (primary) hypertension (ICD-10) Extremity edema ?R60.0 - Localized edema (ICD-10) Non-ischemic cardiomyopathy ?I42.8 - Other cardiomyopathies (ICD-10) Congestive heart failure ?I50.9 - Heart failure, unspecified (ICD-10) Surgical History (Updated 01/05/25 @ 09:59 by Violette Martinez NP) H/O hand surgery ?Z98.890 - Other specified postprocedural states (ICD-10) History of cardiac catheterization ?Z98.890 - Other specified postprocedural states (ICD-10) History of tonsillectomy ?Z90.89 - Acquired absence of other organs (ICD-10) Family History (Updated 01/05/25 @ 09:30 by Violette Martinez NP) Other Family history of cancer Family history of hypertension Social History (Updated 01/05/25 @ 09:22 by Violette Martinez NP) Within the past year, how often did you have a drink containing alcohol: never Score interpretation: A score less than 4 is consistent with normal alcohol consumption. 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 General:The patient appears well and in no apparent distress.Patient is resting comfortably on cart. Skin:Warm, dry, no pallor noted.There is no rash noted. Head:Normocephalic, atraumatic Eye: Normal conjunctiva, no drainage Ears, Nose, Mouth, and Throat: oral mucosa is moist. Nares patent. Cardiovascular:Regular Rate and Rhythm Respiratory:Patient is in no distress, no accessory muscle use, lungs are clear to auscultation, no wheezing, rales or rhonchi Back:non-tender GI: Soft and nontender Musculoskeletal: The patient has no evidence of calf tenderness, no pitting edema, symmetrical pulses noted bilaterally Neurological:A&O x4, normal speech. Cranial nerves II through XII intact. He has symmetric and intact strength in all muscles of his upper extremities. Left leg is unaffected with normal strength. He has diminished strength in all muscle groups of the right leg. Sensation now seems to be symmetric. He has no limb ataxia in all 4 extremities. Psychiatric:Cooperative NIH score is 2. Constitutional Vital Signs, click to edit/add: Last Vital Signs Temp 97.8 F 05/03/25 10:35 Pulse 69 05/03/25 11:29 Resp 14 05/03/25 10:35 BP 162/102 H 05/03/25 10:35 Pulse Ox 96 05/03/25 11:29 O2 Del Method Room Air 05/03/25 11:29 Course Vital Signs Vital signs: Vital Signs Temperature 97.8 F 05/03/25 10:35 Pulse Rate 78 05/03/25 10:35 Respiratory Rate 14 05/03/25 10:35 Blood Pressure 162/102 H 05/03/25 10:35 Pulse Oximetry 96 05/03/25 10:35 Oxygen Delivery Method Room Air 05/03/25 10:35 Temperature 97.8 F 05/03/25 10:35 Pulse Rate 69 05/03/25 11:29 Respiratory Rate 14 05/03/25 10:35 Blood Pressure 162/102 H 05/03/25 10:35 Pulse Oximetry 96 05/03/25 11:29 Oxygen Delivery Method Room Air 05/03/25 11:29 Medical Decision Making MDM Narrative Medical decision making narrative: The patient presented with right leg weakness and ataxia. His workup including CT brain and CT angiogram of head and neck is negative. His symptoms have now resolved completely and he has no weakness in that leg and is able to ambulate without any difficulty. I have spoken to the stroke team at [facility] and they have reviewed his studies and they recommend admission for MRI and further stroke workup. They did not recommend any medication such as aspirin or Plavix at this point. Treatment diagnosis and disposition were discussed with the patient and his . Differential Diagnosis Differential Diagnosis: Intracranial hemorrhage, CVA, TIA Lab Data Lab results reviewed: Yes I reviewed the patient's lab results Labs: Lab Results 05/03/25 Range/Units 10:50 WBC 10.5 (4.0-11.0) 10^3/uL RBC 4.96 (4.70-6.10) 10^6/uL Hgb 14.7 (14.0-18.0) g/dL Hct 42.7 (42.0-54.0) % MCV 86.1 (80.0-94.0) fL MCH 29.6 (25.9-34.0) pg MCHC 34.4 (29.9-35.2) g/dL RDW 13.6 (11.0-15.0) % Plt Count 268 (150-450) 10^3/uL MPV 10.5 (9.5-13.5) fL Neut % (Auto) 57.8 (43.0-75.0) % Lymph % (Auto) 29.0 (20.5-60.0) % [place] % (Auto) 9.1 (1.7-12.0) % Eos % (Auto) 2.9 (0.9-7.0) % Baso % (Auto) 0.7 (0.2-2.0) % Neut # (Auto) 6.1 (1.4-6.5) 10^3/uL Lymph # (Auto) 3.1 (1.2-3.8) 10^3/uL [place] # (Auto) 1.0 H (0.3-0.8) 10^3/uL Eos # (Auto) 0.3 (0.0-0.7) 10^3/uL Baso # (Auto) 0.1 (0.0-0.1) 10^3/uL Abs Immat Gran (auto) 0.05 H (0.00-0.03) 10^3/uL Imm/Tot Granulo (auto) 0.5 (0.0-0.5) % PT 10.3 (9.0-11.6) sec INR 0.97 APTT 27.2 (22.3-36.2) sec Sodium 141 (136-145) mmol/L Potassium 3.9 (3.5-5.1) mmol/L Chloride 108 H (98-107) mmol/L Carbon Dioxide 23.4 (21.0-32.0) mmol/L Anion Gap 13.5 BUN 15.0 (7.0-18.0) mg/dL Creatinine 1.14 (0.70-1.30) mg/dL Est GFR ( Amer) >60 (>=60 mL/min/1.73m^2) Est GFR (Non-Af Amer) >60 (>=60 mL/min/1.73m^2) BUN/Creatinine Ratio 13.2 Glucose 104 (74-106) mg/dL Calcium 9.1 (8.5-10.1) mg/dL Imaging Data CT scan - head: Radiologist's impression: ITS Impressions Brain CT 05/03/25 10:46 IMPRESSION: ATROPHY AND WHITE MATTER CHANGES WHICH MAY BE MICROVASCULAR DISEASE. RIGHT BASAL GANGLIA OLD LACUNAR INFARCTS AND/OR PROMINENT PERIVASCULAR SPACES. NO DEFINITE ACUTE INTRACRANIAL ABNORMALITY. FOLLOW-UP IS RECOMMENDED, SYMPTOMS WARRANT. Comment: Findings were discussed with Dr. Quinones at 1130 hours Impression dictated by: Purnima Feliz M.D. 05/03/2025 11:33 AM Dictation Location: [facility]-02 Electronically authenticated by: [id number] Y Date: 05/03/2025 11:33 Chest X-Ray 05/03/25 10:47 IMPRESSION: NO ACUTE FINDINGS Impression dictated by: Purnima Feliz M.D. 05/03/2025 11:38 AM Dictation Location: [email or web address] Electronically authenticated by: [id number] Y Date: 05/03/2025 11:38 Head CTA 05/03/25 11:28 IMPRESSION: NO CRITICAL STENOSIS OR VASCULAR OCCLUSIVE DISEASE. Impression dictated by: Purnima Feliz M.D. 05/03/2025 12:29 PM Dictation Location: [email or web address] Electronically authenticated by: [id number] Y Date: 05/03/2025 12:29 Neck CTA 05/03/25 11:28 IMPRESSION: NO CRITICAL STENOSIS OR VASCULAR OCCLUSIVE DISEASE. Impression dictated by: Purnima Feliz M.D. 05/03/2025 12:29 PM Dictation Location: [employer]-02 Electronically authenticated by: [id number] Y Date: 05/03/2025 12:29 ECG Data Attestation: I personally reviewed and interpreted this ECG as follows: (EKG on my interpretation shows normal sinus rhythm with rate of 71 and no acute change) Discharge Plan Discharge Chief Complaint: Extremity Problem, Nontraumatic Clinical Impression: TIA (transient ischemic attack) Patient Disposition: Admitted as Observation Time of Disposition Decision: 12:57 Condition: Good
[2025-05-03 11:21] LABS: Anion Gap 13.5; Blood Urea Nitrogen 15.0 mg/dL (7.0-18.0); Calcium 9.1 mg/dL (8.5-10.1); Carbon Dioxide 23.4 mmol/L (21.0-32.0); Chloride 108 mmol/L (98-107); Estimated GFR (African America >60 (>=60 mL/min/1.73m^2); Estimated GFR (Non-African Ame >60 (>=60 mL/min/1.73m^2); Glucose 104 mg/dL (74-106); INR 0.97; Partial Thromboplastin Time 27.2 sec (22.3-36.2); Potassium 3.9 mmol/L (3.5-5.1); Prothrombin Time 10.3 sec (9.0-11.6); Sodium 141 mmol/L (136-145)
--- NOTE | 2025-05-03 11:28 | CT_ITS ---
The [address] [address] Patient Name: RAINA GALAN MRN: [id number] date: 1970 Sex: M Assigned Patient Location: ER Current Patient Location: Accession/Order Number: [id number] Exam Date: 05/03/2025 11:43 Report Date: 05/03/2025 12:29 At the request of: PANCHO BUSTOS MD Procedure: CT angio neck CTA OF THE HEAD AND NECK WITH CONTRAST CLINICAL DATA: Right lower extremity weakness and numbness. Dizziness. COMPARISON: None Spiral images were obtained through the head and neck following 100 mL of Omnipaque 350. Sagittal and coronal MIP as well as 3-D volume rendered reconstructions of the carotid arteries and [place] of [place] were reviewed. Stenosis is evaluated using NASCET CT criteria. This CT exam was performed using one or more following dose reduction techniques: Automated exposure control, adjustment of the mA and/or kV according to patient size, or use of iterative reconstruction technique. The aortic arch and proximal great vessels show minimal plaque however no significant stenosis. The vertebral arteries are similar in caliber. No focal stenosis or suspected dissection is seen. There is minimal plaque at the carotid bifurcations . There are no associated stenosis. Small shotty cervical lymph nodes are visualized. There are minor degenerative changes at the cervical spine. The upper imaged lungs show minimal scarring. The distal vertebral and basilar arteries are tortuous. There is no prominent plaque or evidence of stenosis. The posterior cerebral arteries are patent. There is origin on the right. There is no significant carotid siphon plaque or luminal narrowing. The right A1 segment is hypoplastic. The anterior and middle cerebral arteries are otherwise patent. No focal stenosis or suspected thrombosis is seen. No aneurysms are identified. The dural venous sinuses are patent. CT/CT angio neck IMPRESSION: NO CRITICAL STENOSIS OR VASCULAR OCCLUSIVE DISEASE. Impression dictated by: Purnima Feliz M.D. 05/03/2025 12:29 PM Dictation Location: [place] [address] Electronically authenticated by: [id number] Y Date: 05/03/2025 12:29
--- NOTE | 2025-05-03 11:28 | CT_ITS ---
The [address] [address] Patient Name: RAINA GALAN MRN: [id number] date: 1970 Sex: M Assigned Patient Location: ER Current Patient Location: Accession/Order Number: [id number] Exam Date: 05/03/2025 11:43 Report Date: 05/03/2025 12:29 At the request of: PANCHO BUSTOS MD Procedure: CT angio neck CTA OF THE HEAD AND NECK WITH CONTRAST CLINICAL DATA: Right lower extremity weakness and numbness. Dizziness. COMPARISON: None Spiral images were obtained through the head and neck following 100 mL of Omnipaque 350. Sagittal and coronal MIP as well as 3-D volume rendered reconstructions of the carotid arteries and [place] of [place] were reviewed. Stenosis is evaluated using NASCET CT criteria. This CT exam was performed using one or more following dose reduction techniques: Automated exposure control, adjustment of the mA and/or kV according to patient size, or use of iterative reconstruction technique. The aortic arch and proximal great vessels show minimal plaque however no significant stenosis. The vertebral arteries are similar in caliber. No focal stenosis or suspected dissection is seen. There is minimal plaque at the carotid bifurcations . There are no associated stenosis. Small shotty cervical lymph nodes are visualized. There are minor degenerative changes at the cervical spine. The upper imaged lungs show minimal scarring. The distal vertebral and basilar arteries are tortuous. There is no prominent plaque or evidence of stenosis. The posterior cerebral arteries are patent. There is origin on the right. There is no significant carotid siphon plaque or luminal narrowing. The right A1 segment is hypoplastic. The anterior and middle cerebral arteries are otherwise patent. No focal stenosis or suspected thrombosis is seen. No aneurysms are identified. The dural venous sinuses are patent. CT/CT angio head IMPRESSION: NO CRITICAL STENOSIS OR VASCULAR OCCLUSIVE DISEASE. Impression dictated by: Purnima Feliz M.D. 05/03/2025 12:29 PM Dictation Location: [place] [address] Electronically authenticated by: [id number] Y Date: 05/03/2025 12:29
--- NOTE | 2025-05-03 11:39 | PC.NURSE ---
pt to imaging via wheelchair with Locker Operator at this time. pt denies needs prior to going back to imaging.
--- NOTE | 2025-05-03 12:08 | PC.NURSE ---
pt returned from imaging, reapplied to simulation software engineer. denies current needs to this RN. pt states symptoms of RLE numbness/tingling resolved at this time. pt able to move heel to alarcon with more ease than previously on ED arrival. denies CRUZ, CP, or SOB. denies current numbness/tingling. moves all [address] Quinones made aware.
--- NOTE | 2025-05-03 13:02 | CA_ITS ---
Patient Name: RAINA GALAN MR#: [id number] : 1970 Exam Date: 05/03/2025 Ordering Doctor: JESUS GRIFFIN ECHOCARDIOGRAM REPORT PROCEDURE: CA ECHO DOPPLER COMPLETE INDICATIONS: stroke workup COMPARISON: None. DESCRIPTION: COMPLETE ECHOCARDIOGRAM Real-time transthoracic echocardiography with 2D, M-mode, spectral and color flow Doppler performed. QUALITY: Technical quality was good. LEFT VENTRICLE: Moderate dilatation. Normal left ventricular wall thickness. There is global hypokinesis. Severely reduced systolic function. LV EF: Visual estimation of left ventricular ejection fraction is severely reduced at 25%. DIASTOLIC: Grade I diastolic dysfunction. ATRIAL SEPTUM: Agitated saline contrast does not reveal an intra-cardiac shunt. LEFT ATRIUM: Moderate dilatation. RIGHT ATRIUM: Normal chamber size. RIGHT VENTRICLE: Normal chamber size. Normal right ventricular systolic function. TRICUSPID VALVE: Normal mobility and thickness. No stenosis with trivial regurgitation. No evidence of pulmonary hypertension. Unable to calculate RVSP due to lack of measurable regurgitation. MITRAL VALVE: Normal mobility and thickness. No evidence of mitral valve stenosis. There is no mitral annular calcification. Trivial mitral regurgitation. AORTIC VALVE: Normal trileaflet appearance. No visible sclerosis. Normal leaflet mobility. No evidence of aortic valve stenosis. Trivial aortic regurgitation. AORTIC ROOT: Upper normal in size, measuring 4.0 cm. The ascending aorta is normal in size and measures 3.5 cm. PULMONIC VALVE: Normal thickness and mobility. No stenosis. Trivial regurgitation. PERICARDIUM: No evidence of pericardial effusion. IVC: Collapses with inspiration. Normal size PLEURA: CONCLUSION: 1. Moderately dilated left ventricle with severely reduced systolic function. There is global hypokinesis. Estimated LVEF is 25%. 2. Normal right ventricular size and systolic function. 3. Moderate biatrial dilatation. 4. Grade 1 diastolic dysfunction. 5. No significant valvular dysfunction. 6. Unable to assess right-sided pressures due to lack of measurable tricuspid regurgitation. 7. Agitated saline contrast does not reveal an intra-cardiac shunt. Adult Echocardiography Procedure Report Left Ventricle LVEDD (3.7 - 5.6 cm): 6.46 cm LVESD (2.2 - 4.0 cm): 5.37 cm LVIVS thickness (0.6 - 1.2 cm): 0.95 cm LVPW thickness (0.5 - 1.0 cm): 1.10 cm e': 0.03 m/s E - e': 18.64 LVOT Max Gradient: 1.56 mm[Hg] LVOT Area (cm2): 0.62 m/s Peak Velocity (LVOT): 0.62 m/s Mean Velocity (LVOT): 0.41 m/s LVOT Diameter 2.19 cm Left Ventricular Ejection Fraction: 25 % Left Atrium LA Volume Index (2D A2C): 38.33 ml/m2 Left Atrium Systolic Dimension: 4.56 cm Mitral Valve MV E to A Ratio: 0.60 Mitral Valve A-Wave Peak Velocity: 0.93 m/s Mitral Valve E-Wave Peak Velocity: 0.56 m/s Right Ventricle RV Internal Diastolic Dimension: 3.28 cm Aorta AO Root Diam: 4.01 cm Ascending Ao Diam: 3.51 cm Aortic Valve AoV Area ([place]): 2.21 cm2, 2.21 cm2 AoV Area (VTI): 2.16 cm2, 2.16 cm2 Peak Velocity(Antegrade Flow): 1.06 m/s Peak Gradient(Antegrade Flow): 4.50 mm[Hg] Mean Velocity(Antegrade Flow): 0.65 m/s Mean Gradient(Antegrade Flow): 1.99 mm[Hg] Velocity Time Integral: 21.13 cm Tricuspid Valve Pulmonic Valve Mean Gradient: 0.82 mm[Hg], 0.79 mm[Hg] Mean Velocity: 0.42 m/s, 0.42 m/s Peak Velocity: 0.61 m/s Peak Gradient: 1.55 mm[Hg], 1.38 mm[Hg] Right Atrium Right Atrium Systolic Pressure: 40.05 ml, 40.05 ml Dictated by: Endy Zabala M.D. on 05/03/2025 at 19:38 Approved by: Endy Zabala M.D. on 05/03/2025 at 19:44
--- NOTE | 2025-05-03 13:02 | MR_ITS ---
The [place] [id number] Patient Name: RAINA GALAN MRN: [id number] date: 1970 Sex: M Assigned Patient Location: MS Current Patient Location: MS Accession/Order Number: [id number] Exam Date: 05/03/2025 14:15 Report Date: 05/03/2025 15:14 At the request of: JESUS GRIFFIN MD Procedure: MR head/brain wo con EXAMINATION: MRI OF THE BRAIN WITHOUT CONTRAST CLINICAL HISTORY: TIA, r/o stroke COMPARISON: Stroke workup 05/03/2025 TECHNIQUE: Multiecho, multiplanar imaging of the brain was performed without enhancement. FINDINGS: Punctate areas of restriction are seen involving the left frontoparietal region with associated abnormal T2 and T2 FLAIR signal suggestive of areas of subacute ischemia. No evidence of blood products are seen on gradient imaging. Cortical atrophy with moderate chronic microvascular ischemic changes. Lacunar infarct right basal ganglia region. Posterior fossa appears unremarkable. Intraorbital contents appear unremarkable. No significant paranasal sinus disease. MR/MR head/brain wo con IMPRESSION: PUNCTATE AREAS OF RESTRICTED DIFFUSION ARE SEEN INVOLVING THE LEFT FRONTOPARIETAL REGION WITH ASSOCIATED ABNORMAL T2 AND T2 FLAIR SIGNAL SUGGESTIVE OF AREAS OF SUBACUTE ISCHEMIA. Impression dictated by: Ivan Chong Jr., DMarcoOMarco 05/03/2025 3:14 PM Dictation Location: [place] [address] Electronically authenticated by: [id number] Y Date: 05/03/2025 15:14
--- NOTE | 2025-05-03 14:54 | PM.HP ---
HPI H&P: HPI History of Present Illness Chief complaint: DIZZINESS R LEG NUMBNESS TIA Narrative: Patient is a 54 year old male with medical hx of HTN on meds presented to ER due to dizziness and right leg numbness, started 3 hours prior arrival while pt in the kitchen. he felt dizzy which was associated with right numbness . denies any other associated symptoms of blurry vision, headache. denies chest pain, SOB. no similar events in the past. Reports that he took all his meds in the am. Here in ER, pt underwent CT head with no acute pathology, CT angio head and neck with no evidence of large vessel occlusion. ER team communicated with telestroke team in [place], advised to be hospitalized for stroke workup. No further recs regarding aspirin or plavix. Review of Systems ROS Status of ROS 10 or more systems reviewed and unremarkable except as noted in history and below [facility] Medical History Left hydrocele ?N43.3 - Hydrocele, unspecified (ICD-10) Hyperlipidemia ?E78.5 - Hyperlipidemia, unspecified (ICD-10) Non-ST elevation DC (NSTEMI) ?I21.4 - Non-ST elevation (NSTEMI) myocardial infarction (ICD-10) Dyspnea on exertion ?R06.09 - Other forms of dyspnea (ICD-10) Hypertension ?I10 - Essential (primary) hypertension (ICD-10) Extremity edema ?R60.0 - Localized edema (ICD-10) Non-ischemic cardiomyopathy ?I42.8 - Other cardiomyopathies (ICD-10) Congestive heart failure ?I50.9 - Heart failure, unspecified (ICD-10) Surgical History H/O hand surgery ?Z98.890 - Other specified postprocedural states (ICD-10) History of cardiac catheterization ?Z98.890 - Other specified postprocedural states (ICD-10) History of tonsillectomy ?Z90.89 - Acquired absence of other organs (ICD-10) Family History Other Family history of cancer Family history of hypertension Social History Within the past year, how often did you have a drink containing alcohol: never Score interpretation: A score less than 4 is consistent with normal alcohol consumption. 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 Highest level of school completed/degree received: high school graduate Little interest or pleasure in doing things: not at all Feeling down, depressed, or hopeless: not at all Meds Home Medications and Allergies Home Medications ?Medication ?Instructions ?Recorded ?Confirmed ?Type aspirin 81 mg tablet,delayed 81 mg PO DAILY 01/05/25 05/03/25 History release (Adult Aspirin Regimen) carvedilol 12.5 mg tablet 12.5 mg PO Q12H 01/05/25 05/03/25 History spironolactone 25 mg tablet 12.5 mg PO DAILY 01/05/25 05/03/25 History valsartan 40 mg tablet 40 mg PO BID 01/05/25 05/03/25 History Allergies Allergy/AdvReac Type Severity Reaction Status Date / Time No Known Drug Allergies Allergy Verified 05/03/25 10:40 Exam Narrative Exam Narrative: General:The patient appears well and in no apparent distress. Patient is resting comfortably Skin:Warm, dry, no pallor noted.There is no rash noted. Head:Normocephalic, atraumatic Eye: Normal conjunctiva, no drainage Cardiovascular:Regular Rate and Rhythm Respiratory:Patient is in no distress, no accessory muscle use, lungs are clear to auscultation, no wheezing, rales or rhonchi GI: Soft and nontender Musculoskeletal: The patient has no evidence of calf tenderness, no pitting edema, symmetrical pulses noted bilaterally Neurological:A&O x4, normal speech. Cranial nerves II through XII intact. He has symmetric and intact strength in all muscles of his upper extremities. strength equal 5/5 in upper and lower extremiteis. Sensation now seems to be symmetric and intact. Psychiatric:Cooperative Constitutional Vital Signs, click to edit/add: Last Vital Signs Temp 97.8 F 05/03/25 10:35 Pulse 68 05/03/25 13:10 Resp 18 05/03/25 13:05 BP 164/100 H 05/03/25 13:05 Pulse Ox 98 05/03/25 13:10 O2 Del Method Room Air 05/03/25 11:29 Results Labs Labs: Short CBC 05/03/25 Range/Units 10:50 WBC 10.5 (4.0-11.0) 10^3/uL Hgb 14.7 (14.0-18.0) g/dL Hct 42.7 (42.0-54.0) % Plt Count 268 (150-450) 10^3/uL BMP 05/03/25 10:50 Sodium 141 Potassium 3.9 Chloride 108 H Carbon Dioxide 23.4 BUN 15.0 Creatinine 1.14 Glucose 104 Calcium 9.1 Assessment and Plan Assessment and Plan (1) CVA (cerebral vascular accident): (2) Uncontrolled hypertension: Plan Subacute ischemia in the left frontoparietal region Uncontrolled HTN Hx of HF- appears compensated Chronic smoker x 1PPD -CT head and CTA head and neck -Hypertensive on arrival 160s/100s, up to 180s/117 during my encounter -Check Lipid profile and A1C. check BNP -Check Echo -MRI brain was done > showed findings consistent with subacute ischemia in the left frontoparietal region -Will continue home aspirin and add Plavix and high intensity statins. -PT/OT eval -Adjusted BP meds Coreg increase to 25 mg BID, Losartan up to 50 mg daily and increase Aldactone to 25 mg daily -Pt reports hx of HF, follows with public opinion survey taker Dr. Casillas as outpatient DVT ppx: Lovenox Diet: healthy heart Discussed with pt at bedside, all questions answered. He is in agreement with above plan
[2025-05-03 16:00] LABS: NT Pro B Type Natriuretic Pept 1594.0 pg/mL (<=900.0)
[2025-05-03] MEDS: CLOPIDOGREL BISULFATE 75 MG TABLET PO (16:31)
[2025-05-03] MEDS: CARVEDILOL 25 MG TABLET PO (16:31)
[2025-05-03] MEDS: LOSARTAN POTASSIUM 50 MG TABLET PO (21:24)
[2025-05-03] MEDS: ATORVASTATIN CALCIUM 40 MG TABLET 80 MG PO (21:24)
[2025-05-03] MEDS: ENOXAPARIN SODIUM 40 MG/0.4 ML SYRINGE SUBQ (21:24)
[2025-05-04] VITALS (10 sets, daily range): BP systolic 124–136; BP diastolic 73–87; PULSE 62–80; TEMP 36.4–36.7; O2SAT 92–95
[2025-05-04 05:55] LABS: Anion Gap 13.6; Blood Urea Nitrogen 16.0 mg/dL (7.0-18.0); Calcium 9.3 mg/dL (8.5-10.1); Carbon Dioxide 24.5 mmol/L (21.0-32.0); Chloride 109 mmol/L (98-107); Cholesterol 175 mg/dL (<=200); Estimated GFR (African America >60 (>=60 mL/min/1.73m^2); Estimated GFR (Non-African Ame 60 (>=60 mL/min/1.73m^2); Glucose 98 mg/dL (74-106); HDL Cholesterol 30 mg/dL (40-60); Potassium 4.1 mmol/L (3.5-5.1); Sodium 143 mmol/L (136-145); Triglycerides 139 mg/dL (<=150); VLDL CHOLESTEROL 27.8 mg/dL
[2025-05-04] MEDS: SPIRONOLACTONE 25 MG TABLET PO (06:19)
--- NOTE | 2025-05-04 07:40 | CM.NOTE ---
Spoke with RN regarding echo results, Amelia GUZMAN tiger txt Dr. Gutierrez results. CM called for old echo for comparison and tiger txt sent to Dr. Gutierrez.
[2025-05-04] MEDS: CLOPIDOGREL BISULFATE 75 MG TABLET PO (08:12)
[2025-05-04] MEDS: CARVEDILOL 25 MG TABLET PO (08:12)
[2025-05-04] MEDS: LOSARTAN POTASSIUM 50 MG TABLET PO (08:13)
[2025-05-04] MEDS: ASPIRIN 81 MG TABLET.DR PO (08:13)
--- NOTE | 2025-05-04 10:00 | CM.NOTE ---
Rounds made with Dr. Gutierrez, discussed with pt plan of care and diagnosis. Cardiology and telestroke will consult with pt today for further recommendations. Dr. Gutierrez discussed results and finding with pt and .
--- NOTE | 2025-05-04 11:02 | PC.NURSE ---
tele stroke consult in progress
--- NOTE | 2025-05-04 12:37 | PM.CACN ---
History of Present Illness History of Present Illness Consult date: 05/04/25 Requesting physician: JESUS GRIFFIN Chief complaint: DIZZINESS R LEG NUMBNESS TIA Narrative: Mr. Knight presented yesterday with acute onset numbness and weakness of R leg. Initial head CT scan negative and subsequent images on MRI suggest subacute frontoparietal CVA. He has been feeling well. 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 Is able to move boxes. Has no complaints of chest pain or shortness of breath, however, at presentation BNP elevated (as was BP) and subsequent echocardiogram demonstrates severe LV systolic dysfunction with EF estimated at 25%. No intracardiac shunting seen and trivial AR and MR seen. Of note, he says that his prior echos showed EF in 45% range and was non-ischemic in origin. Review of Systems ROS Narrative No headache, cough, SOB, chest pain, vision changes, tightness in chest, blood in stools or urine, syncope or lightheadedness PFSH PFS Medical History Left hydrocele ?N43.3 - Hydrocele, unspecified (ICD-10) Hyperlipidemia ?E78.5 - Hyperlipidemia, unspecified (ICD-10) Non-ST elevation IL (NSTEMI) ?I21.4 - Non-ST elevation (NSTEMI) myocardial infarction (ICD-10) Dyspnea on exertion ?R06.09 - Other forms of dyspnea (ICD-10) Hypertension ?I10 - Essential (primary) hypertension (ICD-10) Extremity edema ?R60.0 - Localized edema (ICD-10) Non-ischemic cardiomyopathy ?I42.8 - Other cardiomyopathies (ICD-10) Congestive heart failure ?I50.9 - Heart failure, unspecified (ICD-10) Surgical History H/O hand surgery ?Z98.890 - Other specified postprocedural states (ICD-10) History of cardiac catheterization ?Z98.890 - Other specified postprocedural states (ICD-10) History of tonsillectomy ?Z90.89 - Acquired absence of other organs (ICD-10) Family History Other Family history of cancer Family history of hypertension Social History Within the past year, how often did you have a drink containing alcohol: never Score interpretation: A score less than 4 is consistent with normal alcohol consumption. 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 Highest level of school completed/degree received: high school graduate Little interest or pleasure in doing things: not at all Feeling down, depressed, or hopeless: not at all Gender Identity: male Meds Home Medications and Allergies Home Medications ?Medication ?Instructions ?Recorded ?Confirmed ?Type aspirin 81 mg tablet,delayed 81 mg PO DAILY 01/05/25 05/03/25 History release (Adult Aspirin Regimen) carvedilol 12.5 mg tablet 12.5 mg PO Q12H 01/05/25 05/03/25 History spironolactone 25 mg tablet 12.5 mg PO DAILY 01/05/25 05/03/25 History valsartan 40 mg tablet 40 mg PO BID 01/05/25 05/03/25 History Allergies Allergy/AdvReac Type Severity Reaction Status Date / Time No Known Drug Allergies Allergy Verified 05/03/25 10:40 Exam Constitutional Vital Signs, click to edit/add: Last Vital Signs Temp 98.0 F 05/04/25 08:00 Pulse 62 05/04/25 12:00 Resp 18 05/04/25 08:00 BP 136/87 05/04/25 08:00 Pulse Ox 94 L 05/04/25 08:00 O2 Del Method Room Air 05/04/25 08:00 Common normals: no apparent distress and average body habitus [facility] Common normals: normocephalic Head and scalp: other (xanthomas) Teeth and gingiva: abnormal tooth and associated gingiva, poor dentition and other (receding gingiva) Neck & C-Spine Common normals: full ROM and supple Carotids: normal carotid upstroke and other (no bruit) Chest Common normals: inspection of chest normal Chest: symmetrical chest wall rise Respiratory Common normals: normal respiratory effort Effort & inspection: able to speak in complete sentences Auscultation: clear to auscultation bilaterally Cardio Common normals: no JVD, regular rate, regular rhythm, S1 normal heart sound, S2 normal heart sound, no gallops, no clicks, no murmurs, no rub and peripheral pulses 2+ throughout Jugular venous distention: other (unable to see but does not appear elevated) Palpation: other (laterally displaced PMI) Rate: regular rate Rhythm: regular rhythm Extremity Common normals: normal to inspection, no calf tenderness and no pedal edema Psych Common normals: mental status grossly normal Attitude: calm Speech: normal speech Results Labs and Meds Lab results: Lipids 05/04/25 Range/Units 05:09 Triglycerides 139 (<=150) mg/dL Cholesterol 175 (<=200) mg/dL HDL Cholesterol 30 L (40-60) mg/dL Cholesterol/HDL Ratio 5.8 Comprehensive Metabolic Panel 05/04/25 Range/Units 05:09 Sodium 143 (136-145) mmol/L Potassium 4.1 (3.5-5.1) mmol/L Chloride 109 H (98-107) mmol/L Carbon Dioxide 24.5 (21.0-32.0) mmol/L BUN 16.0 (7.0-18.0) mg/dL Creatinine 1.25 (0.70-1.30) mg/dL Glucose 98 (74-106) mg/dL Calcium 9.3 (8.5-10.1) mg/dL Intake and Output 05/03/25 05/04/25 05/04/25 23:59 07:59 15:59 Output Total 650 / 1250 Balance -650 / -1250 Output: Urine 650 / 1250 Imaging and Cardiology ECG results: image reviewed EKG Interpretation EKG: sinus rhythm (with nonspecific ST T wave abnormalities) Assessment and Plan Assessment and Plan (1) CVA (cerebral vascular accident): (2) Uncontrolled hypertension: (3) Non-ischemic cardiomyopathy: Plan It appears from imaging that he may have had subclinical strokes and now has a new stroke. In the setting of markedly worse LV systolic function with an EF estimated at 25%, I am concerned about the possibility of cardiac emboli as stroke source. At this point I would recommend that he be transferred to the care of his regular breastfeeding educator, Dr. Casillas, at [facility] for further workup which may include ALEX, etc. to evaluate for cardiac source of CVA.
--- NOTE | 2025-05-04 13:10 | SWNOTE1 ---
SW called [facility] and they do not carry AFO Braces that is being recommended at discharge for pt.
--- NOTE | 2025-05-04 13:41 | SWNOTE1 ---
Pt is being transferred for higher level of care and they will address any discharge needs.
--- NOTE | 2025-05-04 14:07 | P.DS_ITS ---
DS: Providers Provider Date of admission: 05/03/25 14:35 Primary care physician: Non-Staff Physician, Consults: 05/03/25 12:32 Consult to Telestroke Routine Reason for consultation: Right leg weakness 05/03/25 14:55 Occupational Therapy Eval and Treat Routine Reason for consultation: stroke workup Physical Therapy Eval and Treat Routine Reason for consultation: stroke workup 05/04/25 09:08 Consult to Cardiology Routine Reason for consultation: acute drop in EF, HFrEF, subacute CVA DS: Diagnosis Discharge Diagnosis (1) CVA (cerebral vascular accident): (2) Uncontrolled hypertension: (3) Non-ischemic cardiomyopathy: Plan as above DS: Summary Hospital Course Hospital Course: Patient is a 54 year old male with medical hx of HTN on meds presented to ER due to dizziness and right leg numbness, started 3 hours prior arrival while pt in the kitchen. he felt dizzy which was associated with right numbness . denies any other associated symptoms of blurry vision, headache. denies chest pain, SOB. no similar events in the past. Reports that he took all his meds in the am. Here in ER, pt underwent CT head with no acute pathology, CT angio head and neck with no evidence of large vessel occlusion. ER team communicated with telestroke team in [place], advised to be hospitalized for stroke workup. No further recs regarding aspirin or plavix. During hospital course, patient initially reported that his RLE numbness/weakness resolved, then reported it was fluctuating on and off then remained weak and numb as of last evening according to him. MRI brain showed Left frontoparietal subacute ischemia/ He was hypertensive on arrival here 180s/110s. Meds were adjusted and controlled his BP since his CVA was subacute. BP was successfully controlled. Echo was done as part of workup for stroke which showed severe LV systolic dysfunction with EF estimated at 25%, No intracardiac shunting seen and trivial AR and MR seen. [facility] stroke team followed on the patient today as well and updated with the plan. I did consult cardiology given new findings on Echo. Cardiology team recommended ALEX for which he recommended patient to be transferred to [facility] with his primary manager personal Dr. Casillas there for further workup including ALEX and HF management, rule out cardioembolic source of stroke. Patient was initiated here on Plavix along with Aspirin, initiated high dose statins and increase his BP meds valsartan to 80 mg BID, Aldactone to 25 mg daily and Coreg to 25 mg BID. Discussed with patient and his our plan of care and plan for transfer and explained reasoning and what is ALEX and possible needs for full AC if proven to have cardiac thrombus. Pt and in agreement and comfortable with transfer plan at this time. Time Spent with Patient Time attestation: Total time spent providing and/or coordinating discharge services: Time spent: greater than 30 minutes Exam Narrative Exam Narrative: General:The patient appears well and in no apparent distress. Patient is resting comfortably Skin:Warm, dry, no pallor noted.There is no rash noted. Head:Normocephalic, atraumatic Eye: Normal conjunctiva, no drainage Cardiovascular:Regular Rate and Rhythm Respiratory:Patient is in no distress, no accessory muscle use, lungs are clear to auscultation, no wheezing, rales or rhonchi GI: Soft and nontender Musculoskeletal: The patient has no evidence of calf tenderness, no pitting edema, symmetrical pulses noted bilaterally Neurological:A&O x4, normal speech. Cranial nerves II through XII intact. RLE strength about 3/5. positive foot frop on R. LLE 5/5. Constitutional Vital Signs, click to edit/add: Last Vital Signs Temp 97.6 F 05/04/25 13:31 Pulse 68 05/04/25 13:59 Resp 18 05/04/25 13:31 BP 124/73 05/04/25 13:31 Pulse Ox 92 L 05/04/25 13:31 O2 Del Method Room Air 05/04/25 13:31 DS: Data Data Completed and Pending Labs on day of discharge: Labs from last 24 hours 05/04/25 05/03/25 05:09 10:50 Sodium 143 Potassium 4.1 Chloride 109 H Carbon Dioxide 24.5 Anion Gap 13.6 BUN 16.0 Creatinine 1.25 Est GFR ( Amer) >60 Est GFR (Non-Af Amer) 60 BUN/Creatinine Ratio 12.8 Glucose 98 Estimat Average Glucose 120 Hemoglobin A1c 5.8 Calcium 9.3 NT-Pro-B Natriuret Pep 1594.0 H* Triglycerides 139 Cholesterol 175 LDL Cholesterol, Calc 118.0 VLDL Cholesterol 27.8 HDL Cholesterol 30 L Cholesterol/HDL Ratio 5.8 Discharge Plan Discharge Disposition: [facility] Condition: Good
--- NOTE | 2025-05-04 15:46 | PC.NURSE ---
report given to Quin in 3 tower. all questions answered
== END 2025-05-04 16:33 | disposition short-term general hospital (02) ==
LOC: ER 12:57 → MS 14:41
PROVIDERS: Admitting Provider Internal Medicine; Emergency Provider Emergency Medicine; Visit Provider Internal Medicine
DX: I63.9 Cerebral infarction, unspecified (principal); I11.0 Hypertensive heart disease with heart failure; I50.42 Chronic combined systolic (congestive) and diastolic (congestive) heart failure; F17.210 Nicotine dependence, cigarettes, uncomplicated; Z79.82 Long term (current) use of aspirin; I42.8 Other cardiomyopathies
CPT/HCPCS: 36415; 70030; 70450; 70496; 70498; 70551; 71045; 80048; 80061; 83036; 83880; 85025; 85610; 85730; 93005; 93306; 96372; 97162; 97165; 97530; 99285; G0378; J1650; Q9967

== ENCOUNTER 2025-05-12 14:44 | Outpatient (RCR) | payer OTHER, SELFPAY | END 2025-06-10 07:51 | disposition home or self-care (01) | LOC: PT 14:44 | PROVIDERS: Visit Provider Student in an Organized Health Care Education/Training Program | DX: I63.9 Cerebral infarction, unspecified (principal) | CPT/HCPCS: 97110; 97112; 97162 ==